=== PATIENT | male | born 1980 | race Caucasian/White ===

== ENCOUNTER 2021-02-12 12:11 | Emergency (ER) | payer OTHER ==
[~2021-02-12] VITALS: Ht 182.9 cm; Wt 87.8 kg
[2021-02-12] MEDS ORDERED: IBUPROFEN 600 MG TAB PO STA (13:14)
[2021-02-12] MEDS ORDERED: IBUPROFEN 600 MG TAB ONE (13:28)
[2021-02-12] MEDS ORDERED: AZITHROMYCIN250 MG PO (14:02)
[2021-02-12] MEDS ORDERED: CEFDINIR300 MG PO (14:04)
[2021-02-12] MEDS ORDERED: DEXAMETHASONE6 MG PO (14:06)
== END 2021-02-12 14:27 | disposition home or self-care (01) ==
LOC: FSED 12:22
DX: R50.9 Fever, unspecified (principal); J18.9 Pneumonia, unspecified organism; B34.9 Viral infection, unspecified; H69.82 Other specified disorders of Eustachian tube, left ear
CPT/HCPCS: 71046; 81003; 87400; 99283

== ENCOUNTER 2021-02-17 15:40 | Emergency (ER) | payer OTHER ==
[~2021-02-17] VITALS: Ht 182.9 cm; Wt 86.2 kg
[~2021-02-17 15:40] MED LIST: AZITHROMYCIN250 MG PO; CEFDINIR300 MG PO; DEXAMETHASONE6 MG PO
[2021-02-17] MEDS ORDERED: VENTOLIN HFA18 GM INH (16:55)
[2021-02-17] MEDS ORDERED: LEVOFLOXACIN750 MG PO (16:55)
[2021-02-17 18:17] VITALS: BP 120/73
== END 2021-02-17 18:12 | disposition home or self-care (01) ==
LOC: FSED 15:46
DX: U07.1 COVID-19 (principal); J39.9 Disease of upper respiratory tract, unspecified; R50.9 Fever, unspecified
CPT/HCPCS: 71046; 99283